=== PATIENT | male | born 1975 | race African-American/Black ===

== ENCOUNTER 2019-10-03 17:35 | Emergency (ER) | payer SELFPAY ==
[~2019-10-03] VITALS: Ht 188 cm; Wt 83.9 kg
--- NOTE | 2019-10-03 19:01 | NUR ---
[place],c/o chronic back and r knee pain, BS104. Pt asleep and easily arousable. No acute distress noted at this time. Pt connected to the monitor and pox. Awaiting for md cannon
--- NOTE | 2019-10-03 23:24 | NUR ---
Patient discharged to home in stable condition. Written and verbal after care instructions given. Patient verbalizes understanding of instruction.Pt ambulatory with a steady gait
[2019-10-03 23:27] VITALS: BP 128/82
== END 2019-10-03 23:28 | disposition home or self-care (01) ==
LOC: ER 17:36
DX: M79.661 Pain in right lower leg (principal); M54.9 Dorsalgia, unspecified; G89.29 Other chronic pain
CPT/HCPCS: 73590-TC